=== PATIENT | male | born 1990 | race Caucasian/White ===

== ENCOUNTER 2016-09-08 09:36 | Emergency (ER) | payer OTHER | END 2016-09-08 10:43 | disposition home or self-care (01) | LOC: CED 09:36 | DX: T40.2X1A Poisoning by other opioids, accidental (unintentional), initial encounter (principal); F11.10 Opioid abuse, uncomplicated; F41.9 Anxiety disorder, unspecified; F17.200 Nicotine dependence, unspecified, uncomplicated | CPT/HCPCS: 99282 ==